=== PATIENT | female | born 1960 | race Caucasian/White ===

== ENCOUNTER 2016-07-26 13:14 | Inpatient (IN) | payer MEDICARE ==
[2016-07-26 13:49] LABS: BASO % 0.3 % (0.1-1.2); EOS % 0.3 % (0.7-5.8); GRAN # 4.8 10_X3_uL (1.6-6.1); HEMATOCRIT 38.4 % (34-45); HEMOGLOBIN 12.9 g/dL (11.2-15.7); LYMPH # 0.6 10_X3_uL (1.2-3.7); LYMPH % 10.2 % (19.3-51.7); MEAN CORPUSCULAR HEMOGLOBIN 32.5 pg (27.0-33.0); MEAN CORPUSCULAR HGB CONC 33.6 g/dL (32.0-36.0); MEAN CORPUSCULAR VOLUME 96.7 fL (79-95); MEAN PLATELET VOLUME 8.7 fl (7.5-11.5); MONO # 0.6 10_X3_uL (0.2-0.9); MONO % 9.2 % (4.7-12.5); PLATELET COUNT 209 x10_3/uL (182-369); RED BLOOD COUNT 3.97 x10_6/uL (3.9-5.2); RED CELL DISTRIBUTION WIDTH 13.1 % (11.7-14.4)
[2016-07-26 14:27] LABS: ALBUMIN 4.3 gm/dL (3.4-5.0); ALKALINE PHOSPHATASE 87 U/L (50-136); ALT/SGPT 10 U/L (3.5-33.9); AMYLASE 51 U/L (15.62-74.58); AST/SGOT 16 U/L (7.04-26.96); BILIRUBIN,TOTAL 0.39 mg/dL (0.0-1.0); BLOOD UREA NITROGEN 21 mg/dL (7-18); CALCIUM 9.3 mg/dL (8.7-10.7); CARBON DIOXIDE 24 mmol/L (21-32); CREATININE 0.9 mg/dL (0.6-1.3); GLUCOSE,RANDOM 78 mg/dL (70-99); LIPASE 20 U/L (6.75-60.75); POTASSIUM 3.5 mmol/L (3.5-5.1); SODIUM 136 mmol/L (136-145); TOTAL PROTEIN 7.3 gm/dL (6.4-8.2)
[2016-07-27 02:45] LABS: GRAN # 2.6 10_X3_uL (1.6-6.1); GRAN % 85.3 % (34.0-71.1); HEMATOCRIT 33.8 % (34-45); HEMOGLOBIN 11.7 g/dL (11.2-15.7); LYMPH # 0.4 10_X3_uL (1.2-3.7); LYMPH % 12.4 % (19.3-51.7); MEAN CORPUSCULAR HEMOGLOBIN 33.1 pg (27.0-33.0); MEAN CORPUSCULAR HGB CONC 34.6 g/dL (32.0-36.0); MEAN CORPUSCULAR VOLUME 95.8 fL (79-95); MEAN PLATELET VOLUME 8.9 fl (7.5-11.5); MONO # 0.1 10_X3_uL (0.2-0.9); MONO % 2.3 % (4.7-12.5); PLATELET COUNT 164 x10_3/uL (182-369); RED BLOOD COUNT 3.53 x10_6/uL (3.9-5.2); WHITE BLOOD COUNT 3.1 x10_3/uL (4.0-10.0)
[2016-07-27 02:57] LABS: BLOOD UREA NITROGEN 18 mg/dL (7-18); CALCIUM 8.5 mg/dL (8.7-10.7); CARBON DIOXIDE 19 mmol/L (21-32); CREATININE 0.8 mg/dL (0.6-1.3); GLUCOSE,RANDOM 234 mg/dL (70-99); POTASSIUM 3.1 mmol/L (3.5-5.1); SODIUM 136 mmol/L (136-145)
[2016-07-28 06:55] LABS: HEMATOCRIT 31.3 % (34-45); HEMOGLOBIN 10.4 g/dL (11.2-15.7); MEAN CORPUSCULAR HEMOGLOBIN 32.2 pg (27.0-33.0); MEAN CORPUSCULAR HGB CONC 33.2 g/dL (32.0-36.0); MEAN CORPUSCULAR VOLUME 96.9 fL (79-95); RED BLOOD COUNT 3.23 x10_6/uL (3.9-5.2); RED CELL DISTRIBUTION WIDTH 12.7 % (11.7-14.4); WHITE BLOOD COUNT 13.4 x10_3/uL (4.0-10.0)
[2016-07-28 07:10] LABS: BLOOD UREA NITROGEN 11 mg/dL (7-18); CALCIUM 8.7 mg/dL (8.7-10.7); CARBON DIOXIDE 24 mmol/L (21-32); CREATININE 0.6 mg/dL (0.6-1.3); GLUCOSE,RANDOM 154 mg/dL (70-99); POTASSIUM 3.4 mmol/L (3.5-5.1); SODIUM 140 mmol/L (136-145)
== END 2016-07-28 13:35 | disposition home or self-care (01) | DRG 872 ==
LOC: ER 13:14 → MS 17:01 → UNDODEPER 07-29 15:42
PROVIDERS: Emergency Medicine; ADMIT Family Medicine
DX: A41.9 Sepsis, unspecified organism (principal); J44.1 Chronic obstructive pulmonary disease with (acute) exacerbation; K52.9 Noninfective gastroenteritis and colitis, unspecified; E86.0 Dehydration; R74.0 Nonspecific elevation of levels of transaminase and lactic acid dehydrogenase [LDH]; Z85.118 Personal history of other malignant neoplasm of bronchus and lung; R50.9 Fever, unspecified; Z79.891 Long term (current) use of opiate analgesic; Z79.899 Other long term (current) drug therapy; Z79.1 Long term (current) use of non-steroidal anti-inflammatories (NSAID); Z88.0 Allergy status to penicillin; Z87.891 Personal history of nicotine dependence; Z99.81 Dependence on supplemental oxygen
CPT/HCPCS: 36415; 71010; 71020; 80048; 80053; 80061; 82150; 82962; 83036; 83605; 83690; 84132; 85025; 86738; 87040; 87400; 87449; 94640; 94664; 99070; J2930

== ENCOUNTER 2016-07-26 13:14 | Emergency (ER) | payer MEDICARE | END 2016-07-26 17:01 | disposition other institution (70) | LOC: ER 13:14 | DX: J44.1 Chronic obstructive pulmonary disease with (acute) exacerbation (principal); Z85.118 Personal history of other malignant neoplasm of bronchus and lung; Z79.899 Other long term (current) drug therapy; Z79.891 Long term (current) use of opiate analgesic; Z88.0 Allergy status to penicillin | CPT/HCPCS: 96365; 96375; 99284; 99284-25 ==